=== PATIENT | male | born 1955 | race African-American/Black ===

== ENCOUNTER 2017-04-26 20:14 | Observation (INO) ==
[2017-04-26 21:24] LABS: MANUAL DIFF NEEDED? NO
[2017-04-26 21:36] LABS: BASO% 0.3 % (0.0-0.8); EOS# 0.09 X1000 (0.0-0.7); EOS% 1.3 % (0.0-10.0); HEMATOCRIT 35.7 % (42.0-52.0); HEMOGLOBIN 11.9 g/dL (14.0-18.0); IMM GRAN# 0.03 X1000 (0.0-0.04); IMM GRAN% 0.4 % (0.0-0.5); LYMPH# 1.22 X1000 (1.2-3.4); LYMPH% 17.5 % (20.5-51.1); MCH 24.5 PG (27-31); MCHC 33.3 g/dL (33-37); MCV 73.6 FL (81-99); MONO# 0.64 X1000 (0.11-0.59); MONO% 9.2 % (1.7-9.3); MPV 10.4 FL (7.4-10.4); NEUT% 71.3 % (42.2-75.2); PLT 199 X1000 (130-400); RBC 4.85 XMIL (4.7-6.1)
[2017-04-26 21:46] LABS: ALBUMIN 4.2 g/dL (3.5-5.0); POTASSIUM 4.7 mmol/L (3.5-5.1); TOTAL BILIRUBIN 0.3 mg/dL (0.20-1.00); TOTAL PROTEIN 7.6 g/dL (6.3-8.3)
--- NOTE | 2017-04-26 22:50 | Diag Imaging Result Doc PS360 ---
EXAM: THORAX/ABDOMEN/PELVIS HISTORY: pain TECHNIQUE: COMPARISON: None. FINDINGS: Chest: No pleural effusions. The esophagus is dilated and distended with air. The heart is not enlarged. The calcified mediastinal and right hilar lymph nodes with granuloma. No pneumothoraces. No consolidation. Likely atelectasis in the left base. I believe there are several nondisplaced fractures bilaterally involving at least the right eighth rib and left seventh ribs. There may be adjacent nondisplaced fractures to the right ninth, 10th and left sixth ribs. No compressed vertebra. Abdomen and pelvis: No laceration to the liver or spleen. Normal enhancement of the liver and spleen. No free fluid. Normal enhancement of the kidneys. No retroperitoneal hematoma. Normal pancreas and adrenal glands. Normal aorta. There is a large right inguinal hernia containing dilated bowel loops. One of the loops in the hernia does not appear to be dilated. There are multiple dilated loops throughout the small bowel and colon. The urinary bladder is moderately distended and appears normal. There are bilateral pars defects to the L5 vertebra with mild subluxation of L5 on the sacrum by approximately 5 mm. There is a vacuum disc at L5-S1. No compressed vertebra. IMPRESSION: Chest: 1. Bilateral nondisplaced rib fractures 2. Dilated esophagus 3. There is evidence of a prior granulomatous infection Abdomen and pelvis: 1. No injury identified 2. Large right inguinal hernia with multiple dilated bowel loops. I believe there is an obstruction within the hernia as well as an ileus in the abdomen. 3. 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 Emergency room was called with these findings. Electronically signed by Rio Herrera 04/26/2017 10:48 PM
[2017-04-26] MEDS ORDERED: NS 1,000 ML IV ONE (23:54)
[2017-04-26] MEDS ORDERED: TORADOL IV PRN (23:54)
--- NOTE | 2017-04-26 23:59 | PROVIDER DOCUMENTATION ---
This chart was entered by Kalyn Swift Scribe, acting as scribe for Waldo Webb MD. HPI-Work Related Injury - General Chief Complaint: Work Related Injury Stated Complaint: WORK RELATED INJURY Time Seen by Provider: 04/26/17 20:46 Source: patient Allergies/Adverse Reactions: Patient Allergies Allergy/AdvReac Type Severity Reaction Status Date / Time No Known Allergies Allergy Verified 02/12/15 14:37 Home Medications: Home Medication List Medication Instructions Recorded Confirmed Last Taken Type NK [No Home Medications] 04/26/17 04/26/17 Unknown History - History of Present Illness-Work Injury Nature of PresentingProblem: 62 year old M presents to the ED with a cc of pain in chest and upper ABD x6 days. Pt states that he got stuck standing in between 2 stacks of lumber while at work. Pt states that his coworkers had to get a forklift and move the stack of lumber so he could move. Location of Pain/Injury: reports: chest, abdomen Pain Radiation: reports: no radiation Quality of Pain: reports: aching Severity: reports: moderate Onset/Duration: reports: 6 days ago Timing: reports: still present Associated Symptoms: reports: chest pain Similar Symptoms Previously?: No Recently seen or treated by another doctor?: No Review of Systems - Adult - REVIEW OF SYSTEMS - ADULT Constitutional: denies: chills, fever Eyes: reports: no symptoms reported Ears, Nose, Mouth & Throat: reports: no symptoms reported Cardiovascular: reports: chest pain. denies: palpitations Respiratory: reports: no symptoms reported Gastrointestinal: reports: abdominal pain. denies: nausea, vomiting Genitourinary: reports: no symptoms reported Musculoskeletal: reports: no symptoms reported Integumentary: reports: no symptoms reported Neurological: reports: no symptoms reported Psychiatric: reports: no symptoms reported Endocrine: reports: no symptoms reported Hematologic/Lymphatic: reports: no symptoms reported Allergic/Immunologic: reports: no symptoms reported All Other Systems: Reviewed and Negative Past History - Adult - PAST MEDICAL HISTORY-ADULT Review of Records: reports: Nursing Assessment Review, Medications Reviewed Major Childhood Illnesses: reports: denies history - PRIOR SURGERIES/PROCEDURES Surgical/Procedure History: reports: appendectomy, bowel surgery - IMMUNIZATION STATUS Childhood Immunizations: See Nurse Assessment Flu Vaccine: See Nurse Assessment - SOCIAL HISTORY Smoking: non-smoker Substance Use: none/never Alcohol Use Frequency: never Physical Exam-Injury Related - Physical Exam-Injury Related Initial Vital Signs Reviewed: Yes General Appearance: appears well, alert, no apparent distress Respiratory: tenderness (lower anterior chest wall) Cardiovascular: normal peripheral pulses, regular rate, rhythm, no edema Abdominal Exam: normal bowel sounds, tenderness (upper ABD tenderness), hernia ( right ingunal hernia) Extremity: normal inspection Integumentary: normal color, warm/dry Psych/Mental Status: normal mood/affect, normal thought content, normal thought process, oriented x 3 Progress - PLAN OF CARE/RESULTS Progress/Plan/Lab Results: Vital Signs - 8 hr 04/26/17 20:19 Temperature 98 F Pulse Rate 92 H Respiratory Rate 18 Blood Pressure 195/113 O2 Sat by Pulse Oximetry 99 Laboratory Results - last 24 hr 04/26/17 04/26/17 21:20 21:20 WBC 6.99 RBC 4.85 Hgb 11.9 L Hct 35.7 L MCV 73.6 L MCH 24.5 L MCHC 33.3 RDW Std Deviation 14.1 Plt Count 199 MPV 10.4 Immature Gran % (Auto) 0.4 Neut % (Auto) 71.3 Lymph % (Auto) 17.5 L Wake % (Auto) 9.2 Eos % (Auto) 1.3 Baso % (Auto) 0.3 Immature Gran # (Auto) 0.03 Neut # (Auto) 4.99 Lymph # (Auto) 1.22 Wake # (Auto) 0.64 H Eos # (Auto) 0.09 Baso # (Auto) 0.02 Sodium 137 Potassium 4.7 Chloride 103 Carbon Dioxide 23 L Anion Gap 11 BUN 23 H Creatinine 1.5 H Estimated GFR/1.73 m2 48 BUN/Creatinine Ratio 15 Glucose 96 Calculated Osmolality 277 Calcium 10.0 Total Bilirubin 0.30 AST 22 ALT 19 Alkaline Phosphatase 69 Total Protein 7.6 Albumin 4.2 Globulin 3.0 Albumin/Globulin Ratio 1.0 Orders Category Date Time Status THORAX/ABDOMEN/PELVIS [CT] Stat Exams 04/26/17 20:47 Completed CBC WITH ELECTRONIC DIFF [HEME] Stat Lab 04/26/17 21:20 Completed COMPREHENSIVE METABOLIC PANEL [CHEM] Stat Lab 04/26/17 21:[address] Donaldson(surgeon) paged: [phone] Result Diagrams: 04/26/17 21:20 04/26/17 21:20 - CT/MRI 1 CT Study: Abdomen, Pelvis, Thorax Impression: Abnormal ( FINDINGS: Chest: No pleural effusions. The esophagus is dilated and distended with air. The heart is not enlarged. The calcified mediastinal and right hilar lymph nodes with granuloma. No pneumothoraces. No consolidation. Likely atelectasis in the left base. I believe there are several nondisplaced fractures bilaterally involving at least the right eighth rib and left seventh ribs. There may be adjacent nondisplaced fractures to the right ninth, 10th and left sixth ribs. No compressed vertebra. Abdomen and pelvis: No laceration to the liver or spleen. Normal enhancement of the liver and spleen. No free fluid. Normal enhancement of the kidneys. No retroperitoneal hematoma. Normal pancreas and adrenal glands. Normal aorta. There is a large right inguinal hernia containing dilated bowel loops. One of the loops in the hernia does not appear to be dilated. There are multiple dilated loops throughout the small bowel and colon. The urinary bladder is moderately distended and appears normal. There are bilateral pars defects to the L5 vertebra with mild subluxation of L5 on the sacrum by approximately 5 mm. There is a vacuum disc at L5-S1. No compressed vertebra. IMPRESSION: Chest: 1. Bilateral nondisplaced rib fractures 2. Dilated esophagus 3. There is evidence of a prior granulomatous infection Abdomen and pelvis: 1. No injury identified 2. Large right inguinal hernia with multiple dilated bowel loops. I believe there is an obstruction within the hernia as well as an ileus in the abdomen. 3. Bilateral pars defects to the L5 vertebra.--Dr. Herrera(radiologist )) - CONSULTS/PCP/HOSPITALIST Notification #1 *Consult/PCP/Hospitalist*: Dr. Donaldson(surgeon) Time Discussed: 23:15 Consult Disposition: Will see in ED #2 Consult: Dr. Bird Time Discussed: 23:50 Consult Disposition: Admit Departure - Departure Date of Disposition Decision: 04/26/17 Time of Disposition Decision: 23:58 DIAGNOSIS: Partial small bowel obstruction Disposition: ADMITTED INPATIENT 09 Certified Medical Emergency: Emergent Condition: Stable Referrals and Follow-Ups: None,PCP [Primary Care Provider] - - Critical Care Note This patient required my direct & personal management of CC.: No This chart was documented by the indicated scribe, (Kalyn Swift Scribe) and accurately reflects the services I performed and decisions made by me, Waldo Webb MD, as attested by the provider's signature.
[2017-04-27] MEDS ORDERED: CATAPRES ONE (00:41)
[2017-04-27] MEDS ORDERED: CATAPRES PO ONE (00:48)
[2017-04-27] MEDS ORDERED: ZOFRAN IV PRN (06:33)
[2017-04-27] MEDS ORDERED: TYLENOL PO PRN (06:33)
[2017-04-27] MEDS ORDERED: SODIUM CHLORIDE 0.9% INJ SCH (06:45)
[2017-04-27] MEDS: PROTONIX IV SCH (06:58)
[2017-04-27] MEDS: CATAPRES PO SCH ×2 (08:47→21:05)
[2017-04-27] MEDS ORDERED: CATAPRES PO SCH (09:00)
--- NOTE | 2017-04-27 09:04 | Diag Imaging Result Doc PS360 ---
EXAM: KUB ABDOMEN HISTORY: inguinal hernia obstruction/ileus TECHNIQUE: KUB COMMENT: There is gaseous distention of the colon. There is some stool in the ascending colon. There is gas in the rectum. There is no evidence of small bowel or gastric distention. No evidence organomegaly or mass is present. IMPRESSION: Ileus. Electronically signed by Alexandr Edgar 04/27/2017 9:02 AM
[2017-04-27] MEDS: NS 1,000 ML IV SCH (11:58)
[2017-04-27] MEDS: DULCOLAX PR SCH ×2 (14:14→21:05)
--- NOTE | 2017-04-27 15:21 | HISTORY AND PHYSICAL ---
CHIEF COMPLAINT: Upper abdominal pain. Chest pain. HISTORY OF PRESENT ILLNESS: This is a 62-year-old male who presented to the emergency room complaining of chest pain and upper abdominal pain for 6 days. He states he was standing in between 2 stacks of lumbar while at work. He got stuck and his coworkers had to get a fork lift to move a stack of lumbar so he could move and be free. His pain has waxed and waned during this last 6 days. He describes this as an aching-type pain. It does increase with movement and inspiration. He denies any vomiting, diarrhea, constipation. CT scan of the chest, abdomen and pelvis was performed which revealed bilateral nondisplaced rib fractures, the right 8th and left 7th ribs with possibly adjacent nondisplaced fractures to the 9th, 10th on the right and 6th rib. Dilated esophagus. A large right inguinal hernia with multiple dilated bowel loops with a possible obstruction. He is being admitted for further evaluation and treatment. PAST MEDICAL HISTORY: Denies. PAST SURGICAL HISTORY: Denies. SOCIAL HISTORY: He denies alcohol, tobacco, or illicit drug use. ALLERGIES: No known drug allergies. HOME MEDICATIONS: None. REVIEW OF SYSTEMS: A 14-point review of systems is discussed with patient with pertinent positives stated in the HPI with all other systems negative. PHYSICAL EXAMINATION: GENERAL: This is a 62-year-old male who is sitting up in the bed, in no distress. VITAL SIGNS: Blood pressure is 159/97 with a heart rate of 70, respirations are 18, temperature is 98.5 degrees oral with room air saturations of 98%. HEENT: Head is normocephalic, atraumatic. Pupils equal, round, react to light. EOMs are intact. Sclerae anicteric. Mucous membranes are moist. NECK: Supple with trachea midline. CARDIOVASCULAR: Regular rate and rhythm. No rubs, murmurs, or gallops. S1, S2 appreciated. PULMONARY: Breath sounds are clear. Chest rises and falls symmetrically with respiration. He does have some tenderness to bilateral lower anterior chest whitaker. GASTROINTESTINAL: Abdomen is soft with some right lower quadrant tenderness. He is nondistended with bowel sounds in all 4 quadrants. EXTREMITIES: No clubbing, cyanosis, or edema. Calves nontender. Pulses are palpable x4. NEUROLOGIC: He is alert and oriented x3. Cranial nerves 2-12 grossly intact. DIAGNOSTICS: WBC is 6.9 with hemoglobin 11.9, hematocrit 35.7, platelets of 199,000. Sodium is 137, potassium 4.7, BUN 23, creatinine 1.5 with a glucose of 96. CT of the chest, abdomen and pelvis revealed bilateral nondisplaced fractures and a right inguinal hernia containing small bowel with a possible obstruction. ASSESSMENT: This is a 62-year-old male who presented to the emergency room complaining of chest and abdominal pain. He is sitting up in the bed in no distress at present. 1. Bilateral nondisplaced lower rib fractures. 2. Right inguinal hernia containing dilated bowel loops with possible small bowel obstruction. 3. Ileus. 4. 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 PLAN: He will be admitted to the hospital. He will be nothing per oral. We will consult General Surgery. We will trend labs. We will give IV hydration with IV pain and nausea control. Further treatments pending hospital course. Dictated by REINA Johnson for Mikhail Bird MD cc: REINA Johnson MD
--- NOTE | 2017-04-27 15:53 | PROGRESS NOTE ---
DATE: 04/27/2017 SUBJECTIVE: He feels well. He says his chest pain is better and denies any abdominal pain. He is passing gas, having bowel movements. He is not vomiting. He is tolerating clear liquids. No pain at his hernia site. OBJECTIVE: Vital signs: No fevers. No tachycardia overnight. Blood pressure 159/97, O2 saturation 98% on room air. General: He is alert, no acute distress. Abdomen: Mildly distended. Tympanic, but it is soft without peritonitis. Right inguinal hernia is easily reducible. It does appear to contain at least some portion of bowel. I do not feel a hernia on the left, but there does appear to be a fat-containing hernia on a CT scan. He is being given a suppository as we speak ordered by the hospitalist service and I agree with this. ASSESSMENT AND PLAN: This is a 62-year-old male who pinned between a truck and a load of wood approximately a week ago. He has got numerous rib fractures and a potentially traumatic right inguinal hernia. His exam is benign. He is quite distended. I wonder if he has got an ileus more than any type of mechanical obstruction, but this again seems to be only partial in nature as he is having bowel movements and tolerating liquids. I agree with aggressive bowel stimulation from below. Regarding hernia, he does need to have this fixed sooner than later, and I have talked to him about seeing me back in next 1-2 weeks to allow him to recover from his rib fractures to not add another insult to this as he would be at high risk for pneumonia in setting rib fractures and repair of an inguinal hernia. I attempted to call his sister to discuss this plan as well, and we will try to contact her again but I have otherwise talked to the hospitalist service. I think we can slowly advance his diet over the next 12-24 hours to soft, and it will be okay for him to go home. cc: Suzan Donaldson MD
[2017-04-27] MEDS: PRINIVIL PO SCH (21:05)
[2017-04-28] MEDS: DULCOLAX PR SCH ×3 (00:57→13:27)
[2017-04-28] MEDS: NS 1,000 ML IV SCH (03:48)
[2017-04-28] MEDS: PROTONIX IV SCH (06:18)
[2017-04-28 06:48] LABS: HEMATOCRIT 35.3 % (42.0-52.0); HEMOGLOBIN 11.3 g/dL (14.0-18.0); MCH 23.8 PG (27-31); MCV 74.3 FL (81-99); MPV 10.6 FL (7.4-10.4); RBC 4.75 XMIL (4.7-6.1)
[2017-04-28 06:59] LABS: AGAP 11; ALBUMIN 3.8 g/dL (3.5-5.0); ALKALINE PHOSPHATASE 65 U/L (32-122); BUN 13 mg/dL (8-22); CALCIUM 9.4 mg/dL (8.8-10.2); CHLORIDE 103 mmol/L (98-107); COSMO 280; GOT 28 U/L (10-34); GPT 21 U/L (10-44); MAGNESIUM 2.1 mg/dL (1.5-2.7); POTASSIUM 4.3 mmol/L (3.5-5.1); SODIUM 140 mmol/L (136-145); TCO2 25 mmol/L (25-35); TOTAL PROTEIN 7.1 g/dL (6.3-8.3)
[2017-04-28] MEDS: CATAPRES PO SCH (09:42)
[2017-04-28] MEDS: PRINIVIL PO SCH (09:42)
[2017-04-28 11:53] VITALS: BP 159/86
--- NOTE | 2017-04-28 21:53 | DISCHARGE SUMMARY ---
ADMISSION DATE: 04/26/2017 DISCHARGE DATE: 04/28/2017 DIAGNOSES: 1. Bilateral nondisplaced lower rib fractures. 2. Right inguinal hernia containing small bowel loops with possible small bowel obstruction. 3. Possible small bowel obstruction resolved. 4. Ileus resolved. 5. 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 6. Hypertension. CONSULTATION: Facundo Donaldson MD with General Surgery. DIAGNOSTICS: 1. CT of the chest, abdomen and pelvis revealed no laceration to the liver or spleen. Normal enhancement of the liver and spleen. No free fluid. Normal enhancement of the kidneys. No retroperitoneal hematoma. Normal pancreas and adrenal glands. Normal aorta. There is a large right inguinal hernia containing dilated bowel loops. One of the loops in the hernia does not appear to be dilated. There are multiple dilated loops throughout the small bowel and colon. There is a small bilateral pars defect at the L5 vertebra with mild subluxation of L5 on the sacrum by approximately 5 mm. There is a vacuum disc at L5-S1, no compressed vertebrae. Chest with bilateral nondisplaced rib fractures, dilated esophagus, evidence of prior granulomatous infection. 2. 04/27/2017 abdomen x-ray, KUB reveals ileus. HOSPITAL COURSE: Mr. Santo presented to the emergency room after being trapped between a load of wood and a truck. He was found to have bilateral nondisplaced lower rib fractures as well as a large right inguinal hernia containing small bowel and colon. It did appear that he had ileus versus small bowel obstruction. He was admitted. He was NPO. This did resolve. Diet has been advanced and he tolerated a GI diet eating 100% with no difficulty. We did start Dulcolax suppositories. He had soft formed stools. Pain is being controlled with Toradol. DISCHARGE MEDICATIONS: 1. Prilosec 20 mg daily. 2. Prinivil 10 mg b.i.d. 3. Toradol 10 q.6 hours p.r.n. 4. Clonidine 0.1 b.i.d. FOLLOWUP: 1. He needs to follow up with Dr. Facundo Donaldson in 2 weeks. At that time surgery will be discussed to repair right inguinal hernia. 2. He needs to obtain a primary care physician to follow hypertension. If he has no primary care physician, he will be given a referral number to call to assist him in obtaining one. CONDITION AT DISCHARGE: He is being discharged home in stable condition with family members. Dictated by REINA Johnson for Mikhail Bird MD cc: REINA Johnson MD
== END 2017-04-28 15:27 | disposition home or self-care (01) ==
LOC: P.MEDSURG 20:14 → P.ED 20:14
PROVIDERS: ATTEND Family Medicine